=== PATIENT | female | born 1970 ===

== ENCOUNTER → 2022-08-06 08:00 | Outpatient (CLI) | payer OTHER ==
[~2022-08-06] VITALS: Ht 170.2 cm; Wt 88.5 kg
[~2022-08-06 08:00] MED LIST: NORVASC10 MG PO; TOPROL XL50 M1 PO
== END | disposition home or self-care (01) ==
LOC: LAB 08:00 → SURG 08-08 12:00 → EDSTATUS 08-08 12:00 → EDBD 08-08 12:00 → SURG 08-08 12:30
PROVIDERS: ATTEND Obstetrics & Gynecology Gynecologic Oncology
DX: Z01.810 Encounter for preprocedural cardiovascular examination (principal); D64.9 Anemia, unspecified; Z20.822 Contact with and (suspected) exposure to COVID-19; N39.0 Urinary tract infection, site not specified; R97.1 Elevated cancer antigen 125 [CA 125]; R19.09 Other intra-abdominal and pelvic swelling, mass and lump

== ENCOUNTER → 2022-08-09 10:46 | Outpatient (CLI) | payer OTHER | END | disposition home or self-care (01) | LOC: LAB 10:46 | PROVIDERS: ATTEND Internal Medicine | DX: D68.8 Other specified coagulation defects (principal) ==

== ENCOUNTER → 2022-08-20 | Outpatient (CLI) | payer OTHER | END | disposition home or self-care (01) | LOC: NUCLEAR 07:30 | PROVIDERS: ATTEND Internal Medicine Hematology & Oncology | DX: I82.1 Thrombophlebitis migrans (principal) ==

== ENCOUNTER 2022-10-21 09:15 | Inpatient (IN) | payer OTHER ==
[~2022-10-21] VITALS: Ht 170.2 cm; Wt 83.9 kg
[2022-10-21] MEDS ORDERED: NORVASC5 MG PO (13:36)
[2022-10-24] MEDS ORDERED: CLONAZEPAM0.5 MG (15:43)
[2022-10-24] MEDS ORDERED: CELECOXIB200 MG (15:43)
== END 2022-10-26 10:22 | disposition home or self-care (01) | DRG 743 ==
LOC: O/R 10-24 07:04 → OB/GYN 10-24 07:04 → SURH 10-24 09:15 → OB/GYN 10-24 12:02
PROVIDERS: ADMIT Obstetrics & Gynecology Gynecologic Oncology; ATTEND Obstetrics & Gynecology Gynecologic Oncology
PROC: 0UT60ZZ Resection of Left Fallopian Tube, Open Approach (ICD-10-PCS; 2022-10-24)
PROC: 0UT10ZZ Resection of Left Ovary, Open Approach (ICD-10-PCS; 2022-10-24)
PROC: 07BC0ZZ Excision of Pelvis Lymphatic, Open Approach (ICD-10-PCS; 2022-10-24)
PROC: 0DBU0ZZ Excision of Omentum, Open Approach (ICD-10-PCS; 2022-10-24)
PROC: 0UT90ZZ Resection of Uterus, Open Approach (ICD-10-PCS; principal; 2022-10-24 10:15)
DX: D25.1 Intramural leiomyoma of uterus (principal); N80.03 Adenomyosis of the uterus; Z20.822 Contact with and (suspected) exposure to COVID-19